=== PATIENT | male | born 1955 | race Two or more races ===

== ENCOUNTER 2018-09-07 18:41 | Emergency (ER) | payer MEDICARE, MEDICAID ==
[~2018-09-07] VITALS: Ht 170.2 cm; Wt 74.8 kg
[2018-09-07 18:52] VITALS: BP 154/67
[2018-09-07 20:13] LABS: Basophils # (auto) 0 uL; Basophils % (auto) 0.5 % (0.0-2.0); Eosinophils # (auto) 0.2 uL; Eosinophils % (auto) 2.4 % (0.0-7.0); Hemoglobin 14.2 g/dL (13.5-17.5); Mean Corpuscular Hemoglobin 29.7 pg (28.0-32.0); Mean Corpuscular Volume 90.1 fL (80.0-100.0); Monocytes # (auto) 0.5 uL; Neutrophils # (auto) 5.9 uL; Neutrophils % (auto) 68.1 % (37.0-80.0); Platelet Count (auto) 203 10^3/uL (140-450); Red Blood Cells 4.78 10^6/uL (4.5-5.90); Red Cell Distribution Width 13.4 % (11.8-14.3); White Blood Cell 8.6 10^3/uL (4.4-10.8)
[2018-09-07 20:17] LABS: Urine Bacteria NONE SEEN /hpf (None Seen); Urine Blood Negative /uL (Negative); Urine Mucus FEW (None Seen); Urine Specific Gravity 1.028 (1.001-1.035); Urine WBC <1 /hpf (0 - 3)
[2018-09-07 20:29] LABS: Alanine Aminotransferase 23 U/L (16-61); Albumin 3.5 g/dL (3.4-5.0); Anion Gap 13 (5-15); Aspartate Aminotransferase 17 U/L (15-37); BUN/Creatinine Ratio 13.5; Blood Urea Nitrogen 15 mg/dL (7-18); Calcium 8.5 mg/dL (8.5-10.1); Carbon Dioxide 21 mmol/L (21-32); Chloride 105 mmol/L (98-107); GFR African American 86 mL/min; GFR Non-African American 71 mL/min; Glucose 253 mg/dL (74-106); Magnesium 1.8 mg/dL (1.6-2.6); Potassium 4.9 mmol/L (3.5-5.1); Sodium 139 mmol/L (136-145)
[2018-09-07 20:34] LABS: Alkaline Phosphatase 69 U/L (45-117); Bilirubin, Total 0.4 mg/dL (0.2-1.0)
== END 2018-09-07 21:29 | disposition left against medical advice (07) ==
LOC: ER 18:41
DX: R10.84 Generalized abdominal pain (principal); Z53.21 Procedure and treatment not carried out due to patient leaving prior to being seen by health care provider
CPT/HCPCS: 36415; 80053; 81001; 83735; 84484; 85025; 93005

== ENCOUNTER 2018-09-14 04:30 | Inpatient (IN) | payer MEDICARE, MEDICAID ==
[~2018-09-14] VITALS: Ht 170.2 cm; Wt 76.1 kg
[2018-09-14 05:47] LABS: Basophils # (auto) 0 uL; Basophils % (auto) 0.4 % (0.0-2.0); Eosinophils # (auto) 0.1 uL; Hematocrit 42.8 % (41.0-53.0); Hemoglobin 14.5 g/dL (13.5-17.5); Lymphocytes # (auto) 1.7 uL; Lymphocytes % (auto) 21.1 % (10.0-50.0); Mean Corpuscular Hemoglobin 29.5 pg (28.0-32.0); Mean Corpuscular Hgb Conc. 33.8 g/dL (32.0-36.0); Mean Corpuscular Volume 87.2 fL (80.0-100.0); Monocytes # (auto) 0.4 uL; Monocytes % (auto) 4.4 % (0.0-12.0); Neutrophils # (auto) 5.9 uL; Neutrophils % (auto) 73.1 % (37.0-80.0); Platelet Count (auto) 213 10^3/uL (140-450); Red Blood Cells 4.91 10^6/uL (4.5-5.90); Red Cell Distribution Width 12.8 % (11.8-14.3); White Blood Cell 8.1 10^3/uL (4.4-10.8)
[2018-09-14 06:16] LABS: Albumin 3.6 g/dL (3.4-5.0); Calcium 8.8 mg/dL (8.5-10.1); Potassium 4.6 mmol/L (3.5-5.1)
[2018-09-14 06:21] LABS: BUN/Creatinine Ratio 14.7; Bilirubin, Total 0.5 mg/dL (0.2-1.0)
[2018-09-14] MEDS ORDERED: MORPHINE SULFATE 4 MG/ML SYR/VIAL IV ONE (07:45)
[2018-09-14] MEDS ORDERED: ONDANSETRON HCL 4 MG/2 ML VIAL IV ONE (07:45)
[2018-09-14] MEDS ORDERED: MORPHINE SULFATE 4 MG/ML SYR/VIAL IV PRN (09:30)
[2018-09-14] MEDS ORDERED: TEMAZEPAM 15 MG CAP PO PRN (09:30)
[2018-09-14] MEDS ORDERED: DEXTROSE (50%) 50ML SYRG IV PRN (09:30)
[2018-09-14] MEDS ORDERED: ACETAMINOPHEN 325 MG TAB PO PRN (09:30)
[2018-09-14] MEDS ORDERED: NITROGLYCERIN 0.4 MG SL TAB SL PRN (09:30)
[2018-09-14] MEDS ORDERED: metFORMIN HYDROCHLORIDE 500 MG TAB PO ONE ×2 (09:30→09:45)
[2018-09-14] MEDS ORDERED: DOCUSATE SOD 100 MG CAP PO PRN (09:30)
[2018-09-14] MEDS ORDERED: ONDANSETRON HCL 4 MG/2 ML VIAL IV PRN (09:30)
[2018-09-14] MEDS ORDERED: MULTIPLE VITAMIN TAB PO SCH (10:00)
[2018-09-14 11:15] VITALS: BP 100/64
[2018-09-14] MEDS: InsuLIN REG 1unit/0.01ml Soln (100units/ml) SC SCH ×3 (11:30→22:00)
[2018-09-14] MEDS: ACCU-CHEK COMFORT CURVE STRIP VI SCH ×3 (11:30→22:00)
[2018-09-14 11:40] VITALS: BP 100/64
[2018-09-14 11:56] LABS: Urine WBC None Seen /hpf (0 - 3)
[2018-09-14 12:15] LABS: INR 0.91 (0.9-1.15); Prothrombin Time 9.9 sec (9.27-12.13)
[2018-09-14] MEDS: SODIUM CHLORIDE 0.9% 1,000 ML IV SCH (12:30)
[2018-09-14 12:45] LABS: Urine Bacteria NONE SEEN /hpf (None Seen); Urine Blood Negative /uL (Negative); Urine Specific Gravity 1.005 (1.001-1.035)
[2018-09-14] MEDS: FAMOTIDINE 20 MG TAB PO SCH ×2 (13:11→22:30)
[2018-09-14] MEDS: GLIMEPIRIDE 2 MG TAB PO SCH ×2 (13:12→22:00)
[2018-09-14 17:01] VITALS: BP 109/61
[2018-09-14] MEDS ORDERED: metFORMIN HYDROCHLORIDE 500 MG TAB PO SCH (18:00)
[2018-09-14] MEDS ORDERED: GLIM4TAB42 PO (18:41)
[2018-09-14] MEDS ORDERED: METF-370 PO (18:41)
[2018-09-14] MEDS: HYDROcodone-ACET 5/325MG TAB PO PRN (18:51)
[2018-09-14] MEDS: MORPHINE SULFATE 4 MG/ML SYR/VIAL IV PRN (20:22)
[2018-09-14 22:00] VITALS: BP 95/43
[2018-09-15] MEDS: SODIUM CHLORIDE 0.9% 1,000 ML IV SCH (02:10)
[2018-09-15 05:00] VITALS: BP 120/59
[2018-09-15] MEDS: MORPHINE SULFATE 4 MG/ML SYR/VIAL IV PRN ×2 (05:30→09:34)
[2018-09-15 06:20] LABS: Basophils # (auto) 0 uL; Basophils % (auto) 0.5 % (0.0-2.0); Eosinophils # (auto) 0.3 uL; Eosinophils % (auto) 4.1 % (0.0-7.0); Hematocrit 40.3 % (41.0-53.0); Lymphocytes % (auto) 32.7 % (10.0-50.0); Mean Corpuscular Hemoglobin 30.3 pg (28.0-32.0); Mean Corpuscular Hgb Conc. 34.6 g/dL (32.0-36.0); Mean Corpuscular Volume 87.4 fL (80.0-100.0); Monocytes # (auto) 0.6 uL; Monocytes % (auto) 9.8 % (0.0-12.0); Neutrophils # (auto) 3.3 uL; Neutrophils % (auto) 52.9 % (37.0-80.0); Platelet Count (auto) 194 10^3/uL (140-450); Red Blood Cells 4.61 10^6/uL (4.5-5.90); Red Cell Distribution Width 13.5 % (11.8-14.3); White Blood Cell 6.2 10^3/uL (4.4-10.8)
[2018-09-15 06:32] LABS: Amylase 38 U/L (25-115); Lipase 199 U/L (73-393)
[2018-09-15 06:42] LABS: Potassium 4.4 mmol/L (3.5-5.1)
[2018-09-15 06:53] LABS: Albumin 3.1 g/dL (3.4-5.0); BUN/Creatinine Ratio 12.2; Bilirubin, Total 0.6 mg/dL (0.2-1.0); Calcium 8.5 mg/dL (8.5-10.1); Total Protein 6.2 g/dL (6.4-8.2)
[2018-09-15 09:03] VITALS: BP 140/72
[2018-09-15] MEDS: HYDROcodone-ACET 5/325MG TAB PO PRN (10:48)
[2018-09-15] MEDS: InsuLIN REG 1unit/0.01ml Soln (100units/ml) SC SCH ×3 (11:30→21:28)
[2018-09-15] MEDS: ACCU-CHEK COMFORT CURVE STRIP VI SCH ×3 (11:30→21:28)
[2018-09-15] MEDS: HYDROmorphone HCL 2 MG/ML VL IV PRN ×4 (11:43→21:29)
[2018-09-15 12:22] VITALS: BP 157/67
[2018-09-15] MEDS ORDERED: cefTRIAXone 1GM/50ML D5W 50 ML IV ONE (13:00)
[2018-09-15] MEDS: SOD CHL 0.9%/ KCL 20MEQ 1,000 ML IV SCH ×2 (15:43→21:29)
[2018-09-15 16:38] VITALS: BP 152/77
[2018-09-15] MEDS: metroNIDAZOLE 500MG/100ML 100 ML IV SCH ×2 (17:09→21:30)
[2018-09-15 22:00] VITALS: BP 136/74
[2018-09-16] MEDS: HYDROmorphone HCL 2 MG/ML VL IV PRN ×5 (00:30→22:00)
[2018-09-16] MEDS: HYDROcodone-ACET 5/325MG TAB PO PRN ×4 (01:46→23:59)
[2018-09-16 05:00] VITALS: BP 108/70
[2018-09-16] MEDS: metroNIDAZOLE 500MG/100ML 100 ML IV SCH ×3 (06:18→22:00)
[2018-09-16] MEDS: InsuLIN REG 1unit/0.01ml Soln (100units/ml) SC SCH ×4 (07:00→22:00)
[2018-09-16] MEDS: ACCU-CHEK COMFORT CURVE STRIP VI SCH ×4 (07:00→22:01)
[2018-09-16 09:00] VITALS: BP 139/75
[2018-09-16] MEDS ORDERED: cefTRIAXone 1GM/50ML D5W 50 ML IV SCH (09:00)
[2018-09-16] MEDS ORDERED: MIDAZOLAM HCL 1MG/1ML-2 ML VIAL ONE (09:14)
[2018-09-16] MEDS ORDERED: ROCURONIUM 10MG/ML 10ML VIAL IV ONE (09:15)
[2018-09-16] MEDS ORDERED: LIDOCAINE 1% INJ PF 5ML AMP ONE (09:15)
[2018-09-16] MEDS ORDERED: ETOMIDATE (2MG/ML) 20ML VIAL IV ONE (09:45)
[2018-09-16] MEDS ORDERED: ePHEDrine SULFATE 50 MG/ML AMP ONE (10:00)
[2018-09-16] MEDS ORDERED: ACCU-CHEK COMFORT CURVE STRIP VI ONE (10:00)
[2018-09-16] MEDS ORDERED: STERILE WATER 10 ML ONE (10:00)
[2018-09-16] MEDS ORDERED: HYDROmorphone HCL 2 MG/ML VL IV PRN ×3 (10:00→12:15)
[2018-09-16] MEDS ORDERED: NALOXONE HCL 0.4 MG/ML VIAL IV PRN (10:00)
[2018-09-16] MEDS ORDERED: ONDANSETRON HCL 4 MG/2 ML VIAL IV ONE (10:00)
[2018-09-16] MEDS ORDERED: fentaNYL CITRATE 100 MCG/2 ML VL ONE (10:03)
[2018-09-16] MEDS ORDERED: KETOROLAC TROMETH 30 MG/ML 1ML VIAL ONE (10:16)
[2018-09-16] MEDS ORDERED: NEOSTIGMINE 1 MG/ML INJ (10mg/10ML VIAL) ONE (10:27)
[2018-09-16] MEDS ORDERED: GLYCOPYRROLATE 0.2 MG/ML 1ML VIAL ONE (10:27)
[2018-09-16] MEDS ORDERED: ONDANSETRON HCL 4 MG/2 ML VIAL IV PRN (12:15)
[2018-09-16] MEDS ORDERED: ceFAZolin 1GM/50ML 50 ML IV SCH (13:22)
[2018-09-16 16:47] VITALS: BP 114/61
[2018-09-16 21:31] VITALS: BP 105/62
[2018-09-17] MEDS: HYDROmorphone HCL 2 MG/ML VL IV PRN ×4 (03:39→18:50)
[2018-09-17 04:59] VITALS: BP 123/65
[2018-09-17 04:59] LABS: Basophils # (auto) 0 uL; Basophils % (auto) 0.5 % (0.0-2.0); Eosinophils # (auto) 0.2 uL; Hematocrit 39.1 % (41.0-53.0); Hemoglobin 13.5 g/dL (13.5-17.5); Lymphocytes # (auto) 1.7 uL; Lymphocytes % (auto) 19.9 % (10.0-50.0); Mean Corpuscular Hemoglobin 30.4 pg (28.0-32.0); Mean Corpuscular Hgb Conc. 34.5 g/dL (32.0-36.0); Mean Corpuscular Volume 87.9 fL (80.0-100.0); Monocytes # (auto) 0.9 uL; Neutrophils # (auto) 5.8 uL; Neutrophils % (auto) 67.6 % (37.0-80.0); Nucleated Red Blood Cells % 0.1 %; Platelet Count (auto) 184 10^3/uL (140-450); Red Blood Cells 4.44 10^6/uL (4.5-5.90); Red Cell Distribution Width 13.4 % (11.8-14.3); White Blood Cell 8.6 10^3/uL (4.4-10.8)
[2018-09-17 05:18] LABS: Calcium 7.9 mg/dL (8.5-10.1); Potassium 4.1 mmol/L (3.5-5.1)
[2018-09-17 05:21] LABS: BUN/Creatinine Ratio 14.6; Bilirubin, Total 0.9 mg/dL (0.2-1.0)
[2018-09-17] MEDS: HYDROcodone-ACET 5/325MG TAB PO PRN ×3 (05:36→21:40)
[2018-09-17] MEDS: metroNIDAZOLE 500MG/100ML 100 ML IV SCH (06:41)
[2018-09-17] MEDS: InsuLIN REG 1unit/0.01ml Soln (100units/ml) SC SCH ×4 (06:41→21:47)
[2018-09-17] MEDS: ACCU-CHEK COMFORT CURVE STRIP VI SCH ×4 (06:41→21:46)
[2018-09-17 08:47] VITALS: BP 101/53
[2018-09-17 11:58] VITALS: BP 115/55
[2018-09-17 16:25] VITALS: BP 137/68
[2018-09-17] MEDS: metFORMIN HYDROCHLORIDE 500 MG TAB PO SCH (18:16)
[2018-09-17 20:00] VITALS: BP 123/66
[2018-09-17 22:00] VITALS: BP 123/66
[2018-09-18] MEDS: HYDROmorphone HCL 2 MG/ML VL IV PRN ×2 (02:28→10:15)
[2018-09-18 05:00] VITALS: BP 123/68
[2018-09-18] MEDS: ACCU-CHEK COMFORT CURVE STRIP VI SCH (06:56)
[2018-09-18] MEDS: InsuLIN REG 1unit/0.01ml Soln (100units/ml) SC SCH (06:56)
[2018-09-18] MEDS: HYDROcodone-ACET 5/325MG TAB PO PRN (06:57)
[2018-09-18] MEDS ORDERED: GLIMEPIRIDE 2 MG TAB PO SCH (08:00)
[2018-09-18] MEDS: metFORMIN HYDROCHLORIDE 500 MG TAB PO SCH (08:16)
[2018-09-18 09:00] VITALS: BP 134/71
== END 2018-09-18 11:45 | disposition home or self-care (01) | DRG 417 ==
LOC: ER 04:34 → OVERFLOW 09:34 → WEST WING 11:15
PROVIDERS: ADMIT Internal Medicine; ATTEND Internal Medicine
PROC: 0FT44ZZ Resection of Gallbladder, Percutaneous Endoscopic Approach (ICD-10-PCS; principal; 2018-09-16 09:45)
DX: K80.00 Calculus of gallbladder with acute cholecystitis without obstruction (principal); K85.10 Biliary acute pancreatitis without necrosis or infection; E87.1 Hypo-osmolality and hyponatremia; E87.2 Acidosis; E11.22 Type 2 diabetes mellitus with diabetic chronic kidney disease; E11.21 Type 2 diabetes mellitus with diabetic nephropathy; E66.9 Obesity, unspecified; N18.2 Chronic kidney disease, stage 2 (mild); K83.8 Other specified diseases of biliary tract; I70.0 Atherosclerosis of aorta; Z89.421 Acquired absence of other right toe(s); Z68.26 Body mass index [BMI] 26.0-26.9, adult; Z83.3 Family history of diabetes mellitus; Z79.84 Long term (current) use of oral hypoglycemic drugs; Z79.899 Other long term (current) drug therapy
CPT/HCPCS: 36415; 71045; 74181; 76705; 78226; 80048; 80053; 81001; 82150; 82247; 82962; 83036; 83690; 85025; 85610; 86850; 86900; 86901; 93005; 96361; 96374; 96375; A6257; G0378; J0690; J0696; J1815; J1885; J2250; J2405; J3490